=== PATIENT | male | born 1925 | race African-American/Black ===

== ENCOUNTER → 2016-11-28 | Day surgery (SDC) | payer MEDICARE, OTHER ==
[~2016-11-28] MED LIST: ACET325T9 PO; AMIN30LI2 PO; AMIN946L5 PO; AMLO5TAB2 PO; AMOX1TAB61 PO; ARIP2TAB PO; ASCO500T2 PO; ASPI325T4 PO; ATOR10TA60 PO; BISA5TAB4 PO; CARV12.52 PO; CYAN10002 IM; DOCU-27 PO; ESCI10TA10 PO; ESCI20TA10 PO; FAMO10TA69 PO; FENTANYL PF 100 MCG/2 ML VIAL. IV PRN; FLUT16SP2 NS; HYDR-2666 PO; HYDROMORPHONE 2 MG/ML VIAL. IV PRN; INSU100C SQ; IV RINGERS,LACTATED 1000ML 1,000 ML IV SCH; LACO100T PO; LEVE750T41 PO; LIDO700A4 TP; LIDOCAINE 1% 1 ML SYRINGE. ID PRN; LISI-338 PO; MAGN2400 PO; MEGE400O PO; MORPHINE SULFATE 2 MG/ML DISP.SYRIN. IV PRN; MULT1TAB68 PO; MULT1TAB90 PO; ONDANSETRON PF 4 MG/2 ML VIAL. IV PRN; POLY17PO5 PO; POTA20TA82 PO; PROCHLORPERAZINE 10 MG/2 ML VIAL. IV PRN; colace
[2016-11-28 11:11] VITALS: BP 166/83
--- NOTE | 2016-11-28 12:36 | PDOC4 ---
GI OP Report - Dr. Maurice Date/Time DATE: 11/28/16 TIME: 12:34 Attending Physician Curt Maurice MD Referring Physician Procedures bed side peg replacement Findings Old peg was worn out and removed. New PEG 24 F size was replaced and balloon inflated. Dressing applied. No sedation was given and no EGD was performed. CURT MAURICE MD Nov 28, 2016 12:35
== END | disposition home or self-care (01) ==
LOC: ENDOS 09:39
PROVIDERS: ATTEND Internal Medicine Gastroenterology
DX: Z43.1 Encounter for attention to gastrostomy (principal); E78.00 Pure hypercholesterolemia, unspecified; I10 Essential (primary) hypertension; E11.9 Type 2 diabetes mellitus without complications; F32.9 Major depressive disorder, single episode, unspecified; Z86.14 Personal history of Methicillin resistant Staphylococcus aureus infection
CPT/HCPCS: 99211